=== PATIENT | female | born 2000 | race African-American/Black ===

== ENCOUNTER 2021-03-02 20:52 | Emergency (ER) | payer BC, SELFPAY ==
--- NOTE | ~2021-03-02 | XR_ITS ---
XR abdomen/kub 1V 03/02/2021 23:40 INDICATION: Abdominal pain for one year TECHNIQUE: KUB COMPARISON: None FINDINGS: Bowel gas pattern is normal. There is no evidence of free air, mass, organomegaly, ascites or obstruction. No abnormal calculi are seen. The bones appear intact. IMPRESSION: 1: No acute abdominal abnormality identified. Reviewed, dictated and finalized at location A.
[2021-03-02 21:07] VITALS: BP 139/97; PULSE 86; RESP 16; TEMP 36.7; O2SAT 100
[2021-03-02 23:02] VITALS: BP 142/91; PULSE 71; RESP 18; O2SAT 99
[2021-03-02 23:38] LABS: Basophils Absolute Auto 0.1 K/mm3 (0.0-0.1); Eosinophils Absolute Auto 0.3 K/mm3 (0-0.3); Hematocrit 39.3 % (37.0-47.0); Hemoglobin 13.3 g/dL (12.0-15.0); Immature Granulocyte Absolute 0.01 K/mm3 (0.00-0.031); Immature Granulocyte Percent A 0.2 % (0-0.5); Lymphocytes Absolute Auto 3.07 K/mm3 (0.9-3.2); Lymphocytes Percent Auto 49.1 % (18.3-44.2); Mean Corpuscular HGB Conc 33.8 g/dl (32-36); Mean Corpuscular Hemoglobin 29.8 pg (26-34); Mean Corpuscular Volume 87.9 fl (80-100); Mean Platelet Volume 9.5 fl (7.4-10.4); Monocytes Absolute Auto 0.4 K/mm3 (0.1-0.6); Monocytes Percent Auto 6.4 % (2.6-8.5); Neutrophils Absolute Auto 2.4 K/mm3 (1.3-6.7); Neutrophils Percent Auto 38.3 % (45.5-73.1); Platelet Count Result 306 k/mm3 (150-375); Red Blood Count 4.47 M/mm3 (4.2-5.4); White Blood Count 6.3 K/mm3 (4.5-10.0)
[2021-03-02 23:43] LABS: Add Urine Microscopic? YES; Appearance Urine Cloudy (Clear); Bacteria Urine Trace /hpf; Bilirubin Urine Negative (Negative); Blood Urine Negative (Negative); Color Urine Yellow (Yellow); Glucose Urine UA Negative (Negative); Ketones Urine Negative (Negative); Leukocyte Esterase Ur Negative LEU/UL (Negative); Mucus Urine Moderate /lpf; Nitrate Urine Negative (Negative); Protein Urine 1+ mg/dL (Negative); Specific Grav Ur 1.021 (1.001-1.035); Squamous Epithelial Cell Urine Many /hpf (Few); Urobilinogen Urine Negative mg/dL (<2.0); WBC Urine 0-3 /hpf
[2021-03-02 23:47] LABS: Alanine Aminotransferase 15 U/L (4-35); Albumin Level 4.9 g/dL (3.7-5.6); Alkaline Phosphatase 97 U/L (45-116); Anion Gap 8 mmol/L (8-16); Aspartate Amino Transferase 36 U/L (14-36); Bilirubin,Total 0.3 mg/dL (0.2-1.3); Blood Urea Nitrogen 6 mg/dL (8-21); Calcium 9.5 mg/dL (8.9-10.7); Carbon Dioxide 26 mmol/L (22-30); Chloride 104 mmol/L (98-107); Estimated CRCL calculation 111 ml/min; Estimated Glomerular Filt Rate > 60; Glucose 89 mg/dL (65-105); Lipase 68 U/L (23-300); Potassium 3.8 mmol/L (3.4-5.0); Sodium 138 mmol/L (134-143)
--- NOTE | 2021-03-03 00:24 | ED.ABDPAIN ---
HPI - Abdominal Pain General Chief Complaint: Abdominal Pain <Jose R Munoz PA-C - Last Filed: 03/03/21 00:28> Stated Complaint: abdominal pains <Jose R Munoz PA-C - Last Filed: 03/03/21 00:28> Time Seen by Provider: 03/02/21 23:07 <Jose R Munoz PA-C - Last Filed: 03/03/21 00:28> Source: patient <BONI Mar Last Filed: 03/03/21 00:28> Mode of arrival: ambulatory <BONI Mar Last Filed: 03/03/21 00:28> Limitations: no limitations <Jose R Munoz PA-C - Last Filed: 03/03/21 00:28> History of Present Illness HPI narrative: Patient is a 20-year-old female who presents with periumbilical abdominal pain that has been present for a year off and on had seen specialist in the past but does not recall any of the diagnoses she was given patient notes she gets intermittent belly pain in the periumbilical region patient denies any fever chills nausea vomiting patient on arrival to emergency department is in the room in no distress patient has not taken anything for her symptoms <Jose R Munoz PA-C - Last Filed: 03/03/21 00:28> Review of Systems Review of Systems: All systems reviewed & are unremarkable except as noted in HPI and below <Jose R Munoz PA-C - Last Filed: 03/03/21 00:28> PMFSH Social History Social History: Social History (Updated 03/03/21 @ 00:25 by Jose R Munoz PA-C) Smoking status: Never smoker <Jose R Munoz PA-C - Last Filed: 03/03/21 00:28> Exam Narrative: Exam Narrative: GENERAL: Well-appearing, well-nourished, and in no acute distress. HEAD: Normocephalic, atraumatic. EYES: PERRLA and EOMI. ENT: Nares clear, no rhinorrhea or epistaxis. Mucous membranes moist. CHEST: Clear to auscultation. No respiratory distress. No wheezes rales or rhonchi HEART: Regular rate and rhythm. No murmur heard. Normal peripheral pulses. ABDOMEN: Soft, nontender, nondistended EXTREMITIES: Normal range of motion. No edema. SKIN: Warm, dry, no rash. NEURO: No focal deficits. Alert and oriented x3. PSYCH: Normal mood and affect. <Jose R Munoz PA-C - Last Filed: 03/03/21 00:28> Course Course Emergency Course: Patient in the room no distress aware of case findings treatment plan and diagnosis agreeing to follow-up as instructed or to return if symptoms worsen or concerns <Jose R Munoz PA-C - Last Filed: 03/03/21 00:28> Vital Signs Vital signs: Vital Signs Temperature 98.1 F 03/02/21 21:07 Pulse Rate 86 03/02/21 21:07 Respiratory Rate 16 03/02/21 21:07 Blood Pressure 139/97 H 03/02/21 21:07 Pulse Oximetry 100 03/02/21 21:07 Temperature 98.1 F 03/02/21 21:07 Pulse Rate 71 03/02/21 23:02 Respiratory Rate 20 03/03/21 00:40 Blood Pressure 133/85 03/03/21 00:40 Pulse Oximetry 99 03/03/21 00:40 <Jose R Munoz PA-C - Last Filed: 03/03/21 00:28> Vital Signs Temperature 98.1 F 03/02/21 21:07 Pulse Rate 86 03/02/21 21:07 Respiratory Rate 16 03/02/21 21:07 Blood Pressure 139/97 H 03/02/21 21:07 Pulse Oximetry 100 03/02/21 21:07 Temperature 98.1 F 03/02/21 21:07 Pulse Rate 71 03/02/21 23:02 Respiratory Rate 20 03/03/21 00:40 Blood Pressure 133/85 03/03/21 00:40 Pulse Oximetry 99 03/03/21 00:40 <Dona Mejia MD - Last Filed: 03/03/21 02:39> MDM - Abdominal Pain MDM Narrative Medical decision making narrative: Patient will be referred to GI for further evaluation of her chronic abdominal pain provided with reasons to return medicated in the emergency department afebrile nontoxic-appearing nontender abdominal exam felt appropriate for outpatient reevaluation <BONI Mar Last Filed: 03/03/21 00:28> Lab Data Result diagrams: : 03/02/21 23:31 03/02/21 23:31 <Jose R Munoz PA-C - Last Filed: 03/03/21 00:28> Labs: Lab Results 03/02/21 03/02/2103/02
[2021-03-03 00:40] VITALS: BP 133/85; RESP 20; O2SAT 99
== END 2021-03-03 00:41 | disposition home or self-care (01) ==
PROVIDERS: Emergency Medicine Emergency Medical Services; Emergency Provider General Practice
DX: R10.33 Periumbilical pain (principal)
CPT/HCPCS: 36415; 74018; 80053; 81001; 81025; 83690; 85025; 99283

== ENCOUNTER 2023-10-11 22:40 | Emergency (ER) | payer BC, SELFPAY ==
[2023-10-11 22:41] VITALS: BP 157/114; PULSE 88; RESP 16; TEMP 36.7; O2SAT 100
--- NOTE | 2023-10-11 23:06 | ED.DENTAL ---
HPI - Dental/Oral General Chief complaint: Dental/Oral Stated complaint: dental pain Time Seen by Provider: 10/11/23 22:57 History of Present Illness HPI Narrative: 22-year-old female reports for evaluation for left upper and lower jaw pain for the past 2 days. Patient states she went to [facility] earlier today and was told she needed a root canal but they did not have REM to fit her in her their schedule. She contacted her dentist at home in [place] he said that they can schedule her on November 07. She reported to the ED today due to worsening swelling since she was at the dentist today. She reports taking Tylenol, ibuprofen and naproxen without relief. She denies difficulty tolerating her secretions or airway compromise. No fever, nausea or vomiting. She denies prior history of dental issues. denies ear pain, sore throat. She does report some sinus congestion especially on the left side. She is currently on her period and denies concern for . Review of Systems Review of Systems: CONSTITUTIONAL: Denies fever, chills, or sweats. EYES: Denies visual changes, redness, or discharge. ENT: See HPI CARDIOVASCULAR: Denies chest pain, palpitations, or edema. RESPIRATORY: Denies cough or dyspnea. GASTROINTESTINAL: Denies abdominal pain, nausea, vomiting, or diarrhea. GENITOURINARY: Denies dysuria or hematuria. SKIN: Denies rash or itching. MUSCULOSKELETAL: Denies back pain, joint pain, or myalgia. NEUROLOGIC: Denies headache, numbness, or weakness. PSYCHIATRIC: Denies anxiety or depression. [facility] Social History Social History Smoking status: Never smoker Exam Narrative: GENERAL: Well-appearing, well-nourished, and in no acute distress. Patient resting comfortably in exam bed. She is pleasant and conversational. HEAD: Normocephalic, atraumatic. EYES: PERRLA and EOMI. ENT: Nares clear, no rhinorrhea or epistaxis. Mucous membranes moist. Bilateral TMs are soto nonbulging. Normal canals. Tenderness to the left upper and lower molars. No severe caries or periapical abscesses. Tenderness to the gingiva. mild amount of edema overlying the mandible. No submandibular swelling or airway compromise. No trismus. Patient is tolerating her secretions. Posterior pharynx without erythema or edema. No tonsillar hypertrophy or uvular deviation. Floor of mouth is soft without crepitus. NECK: Supple. CHEST: Clear to auscultation. No respiratory distress. HEART: Regular rate and rhythm. No murmur heard. Normal peripheral pulses. EXTREMITIES: Normal range of motion. No edema. SKIN: Warm, dry, no rash. NEURO: No focal deficits. Alert and oriented x3 Course Vital Signs Vital signs: Vital Signs Temperature 98.1 F 10/11/23 22:41 Pulse Rate 88 10/11/23 22:41 Respiratory Rate 16 10/11/23 22:41 Blood Pressure 157/114 H 10/11/23 22:41 Pulse Oximetry 100 10/11/23 22:41 Oxygen Delivery Room Air 10/11/23 22:41 Temperature 98.1 F 10/11/23 22:41 Pulse Rate 78 10/11/23 23:22 Respiratory Rate 16 10/11/23 23:22 Blood Pressure 158/98 H 10/11/23 23:22 Pulse Oximetry 100 10/11/23 23:22 Oxygen Delivery Room Air 10/11/23 22:41 MDM - Dental/Oral MDM Narrative Medical decision making narrative: 22-year-old female reports for evaluation for left upper and lower toothache for the past 2 days. she saw a local dentist earlier today who advised that she needs a root canal. She is scheduled for her dentist in [place] on November 07. Vital significant for elevated blood pressure, otherwise unremarkable. She is afebrile. Exam significant for the above. No evidence of deep space infection. Plan to start her on Augmentin to cover potential dental infection. encouraged her to follow-up with dentistry. I advised her to take Tylenol ibuprofen as needed for pain. Ibuprofen sent to pharmacy. Strict ED return precautions discussed.
[2023-10-11] MEDS: AMOXICILLIN/CLAVULANATE K 875-125 MG TAB 1 TABLET PO (23:21)
[2023-10-11] MEDS: IBUPROFEN 400 MG TABLET 800 MG PO (23:21)
[2023-10-11 23:22] VITALS: BP 158/98; PULSE 78; RESP 16; O2SAT 100
[2023-10-11] MEDS: HYDROcodone/acetaminophen (*CRX) 5-325 MG TABLET 1 TAB PO (23:52)
== END 2023-10-11 23:54 | disposition home or self-care (01) ==
PROVIDERS: Emergency Provider Physician Assistant
DX: K08.89 Other specified disorders of teeth and supporting structures (principal)
CPT/HCPCS: 99283; A9270

== ENCOUNTER 2024-07-29 15:04 | Emergency (ER) | payer BC, SELFPAY ==
[2024-07-29 15:06] VITALS: BP 165/99; PULSE 93; RESP 16; TEMP 36.9; O2SAT 100
== END 2024-07-29 15:06 | disposition left against medical advice (07) ==
DX: R10.9 Unspecified abdominal pain (principal)
CPT/HCPCS: 99199

== ENCOUNTER 2024-07-29 18:14 | Emergency (ER) | payer BC, SELFPAY ==
--- NOTE | ~2024-07-29 | US_ITS ---
US pelvic complete Ordering provider: Mango Berrios MD History: . Ovarian cyst evaluate for torsion . Comparison: None. Technique: Transabdominal and endovaginal ultrasound of the pelvis (Doppler ultrasound interrogation techniques used as needed for this exam.) FINDINGS: CERVIX: Normal. UTERUS: Measures 8.5x 4.5 cm in length which is within normal limits and is anteverted. No myometria l masses. ENDOMETRIUM: Normal in thickness measuring 10.6 mm. (Note: the premenopausal endometrium may measure up to 16 mm when in the secretory phase.) No endometrial masses, cysts or fluid. CUL DE SAC: No free fluid. RIGHT OVARY: Normal in size measuring 2.9x 2.1x 2.5 cm Normal echotexture. Doppler vascular flow pres ent. LEFT OVARY: Normal in size measuring 4.1x 3.6x 4.6 Normal echotexture. Doppler vascular flow present. Cyst is seen in the right adnexa measuring 4.3 x 3.8 x 3.7 cm. ADNEXA: Normal. No mass. IMPRESSION: Right ovarian cyst. Otherwise, normal pelvic ultrasound. Reviewed, dictated and finalized at location A.
--- NOTE | ~2024-07-29 | CT_ITS ---
CT of the Abdomen and Pelvis: Indication: Abdominal pain Technique: 2.5 mm axial scans were obtained through the abdomen and pelvis following intravenous adm inistration of 100 cc of Omnipaque 350. Dose reduction technique was used on this scan by utilizing a utomated exposure control and iterative reconstruction technique. The dose-length product (DLP) was 3 15.37 mGy-cm. Findings: Scans through the lung bases are unremarkable. The liver, spleen, pancreas, gallbladder, adrenals and kidneys are within normal limits. No evidence of aortic aneurysm. No lymphadenopathy. No bowel obstruction or bowel wall thickening. There is no evidence to suggest acute appendicitis. Images through the pelvis were performed. Urinary bladder unremarkable. 4.5 cm left ovarian cyst pres ent. Trace ascites present. Impression: 4.5 cm left ovarian cyst. Consider pelvic ultrasound if there is concern for torsion. Reviewed, dictated and finalized at [facility]. Impression: 4.5 cm left ovarian cyst. Consider pelvic ultrasound if there is concern for to rsion.
[2024-07-29 18:31] VITALS: BP 141/88; PULSE 87; RESP 16; TEMP 36.7; O2SAT 100
[2024-07-29 23:05] VITALS: BP 186/99; PULSE 70; RESP 18; O2SAT 96
[2024-07-30 01:25] LABS: Basophils Absolute Auto 0.1 K/mm3 (0.0-0.1); Basophils Percent Auto 0.7 % (0.2-1.2); Eosinophils Absolute Auto 0.3 K/mm3 (0-0.3); Eosinophils Percent Auto 4.2 % (0-4.4); Hemoglobin 10.9 g/dL (12.0-15.0); Immature Granulocyte Absolute 0.01 K/mm3 (0.00-0.031); Immature Granulocyte Percent A 0.1 % (0-0.5); Lymphocytes Absolute Auto 1.39 K/mm3 (0.9-3.2); Lymphocytes Percent Auto 20.7 % (18.3-44.2); Mean Corpuscular HGB Conc 32.1 g/dl (32-36); Mean Corpuscular Hemoglobin 26.8 pg (26-34); Mean Corpuscular Volume 83.5 fl (80-100); Mean Platelet Volume 8.9 fl (7.4-10.4); Monocytes Absolute Auto 0.4 K/mm3 (0.1-0.6); Monocytes Percent Auto 5.9 % (2.6-8.5); Neutrophils Absolute Auto 4.6 K/mm3 (1.3-6.7); Neutrophils Percent Auto 68.4 % (45.5-73.1); Platelet Count Result 305 k/mm3 (150-375); Red Blood Count 4.07 M/mm3 (4.2-5.4); Red Cell Distribution Width 14.6 % (11.5-14.5); White Blood Count 6.7 K/mm3 (4.5-10.0)
--- NOTE | 2024-07-30 01:28 | ECG_ITS ---
Test Date: 2024-07-30 01:45:57 Measurements Intervals [place] Rate: 76 P: 60 DE: 169 QRS: 40 QRSD: 79 T: 22 QT: 400 QTc: 451 Interpretive Statements SINUS RHYTHM WITH SINUS ARRHYTHMIA POSSIBLE LEFT ATRIAL ENLARGEMENT CANNOT R/O SEPTAL INFARCT, AGE INDETERMINATE BORDERLINE ST-T WAVE ABNORMALITY- ANT/INF LEADS ABNORMAL ECG No previous ECG available for comparison Electronically Signed On 07-30-2024 05:52:16 CDT by Jonathan Emery D.O.
--- NOTE | 2024-07-30 01:28 | ED.ABDPAIN ---
HPI - Abdominal Pain General Chief Complaint: Abdominal Pain <Tory Lizama PA-C - Last Filed: 07/30/24 17:31> Stated Complaint: abd pain <Tory Lizama PA-C - Last Filed: 07/30/24 17:31> Time Seen by Provider: 07/30/24 00:55 <Tory Lizama PA-C - Last Filed: 07/30/24 17:31> Source: patient <Tory Lizama PA-C - Last Filed: 07/30/24 17:31> Mode of arrival: ambulatory <Tory Lizama PA-C - Last Filed: 07/30/24 17:31> Limitations: no limitations <Tory Lizama PA-C - Last Filed: 07/30/24 17:31> History of Present Illness HPI narrative: This is a 23 year old female that presents to the emergency department for epigastric abdominal pain. Ongoing over the last week. Reports the pain is burning in nature and sharp. Radiates into her chest. She has tried taking some ahpo-brh-tkazctn medications with little relief. Pain is worse with eating. Reports some associated nausea and vomiting. Denies fevers. <Tory Lizama PA-C - Last Filed: 07/30/24 17:31> Related Data Allergies/Adverse Reactions: Allergies Allergy/AdvReac Type Severity Reaction Status Date / Time No Known Allergies Allergy Verified 07/29/24 18:14 <Tory Lizama PA-C - Last Filed: 07/30/24 17:31> Review of Systems Review of Systems: CONSTITUTIONAL: Denies fever GASTROINTESTINAL: Reports abdominal pain, nausea, vomiting. Denies diarrhea. GENITOURINARY: Denies dysuria <Tory Lizama PA-C - Last Filed: 07/30/24 17:31> All systems reviewed & are unremarkable except as noted in HPI and below <Tory Lizama PA-C - Last Filed: 07/30/24 17:31> [facility] Past Medical History Medical History: Medical History (Updated 07/30/24 @ 04:40 by Tory Lizama PA-C) No active medical problems <Tory Lizama PA-C - Last Filed: 07/30/24 17:31> Social History Social History: Social History Smoking status: Never smoker <Tory Lizama PA-C - Last Filed: 07/30/24 17:31> Exam Narrative: GENERAL: Well-appearing, well-nourished, and in no acute distress. HEAD: Normocephalic, atraumatic. EYES: EOMI. CHEST: Clear to auscultation. No respiratory distress. No wheezes rales or rhonchi HEART: Regular rate and rhythm. No murmur heard. Normal peripheral pulses. ABDOMEN: Soft, nontender, nondistended, normal active bowel sounds. EXTREMITIES: Normal range of motion. No edema. SKIN: Warm, dry, no rash. NEURO: No focal deficits. Alert and oriented x3. PSYCH: Normal mood and affect <Tory Lizama PA-C - Last Filed: 07/30/24 17:31> Course Course Emergency Course: Updated on her workup thus far. Endorsing continued pain. Will obtain imaging for further evaluation. Care taken over by Dr. Berrios at shift change <Tory Lizama PA-C - Last Filed: 07/30/24 17:31> Reevaluation(s) Reevaluation #1: 23-year-old female was signed out to me by the overnight physician with ultrasound pending. Ultrasound was ordered to rule out ovarian torsion. Ultrasound showed a right ovarian cyst but no evidence of torsion. Patient was up to the results of workup patient was comfortable the plan for discharge and close follow-up. <Neel Fall MD - Last Filed: 07/30/24 10:27> Vital Signs Vital signs: Vital Signs Temperature 98.1 F 07/29/24 18:31 Pulse Rate 87 07/29/24 18:31 Respiratory Rate 16 07/29/24 18:31 Blood Pressure 141/88 H 07/29/24 18:31 Pulse Oximetry 100 07/29/24 18:31 Temperature 97.9 F 07/30/24 09:33 Pulse Rate 82 07/30/24 09:33 Respiratory Rate 14 07/30/24 09:33 Blood Pressure 141/90 H 07/30/24 09:33 Pulse Oximetry 100 09/17/24 09:33 <Tory Lizama PA-C - Last Filed: 07/30/24 17:31> Vital Signs Temperature 98.1 F 07/29/24 18:31 Pulse Rate 87 07/29/24 18:31 Respiratory Rate 16 07/29/24 18:31 Blood Pressure 141/88 H 07/29/24 18:31 Pulse
[2024-07-30] MEDS: ONDANSETRON INJ 4 MG/2 ML VIAL IV PUSH (01:34)
[2024-07-30] MEDS: PANTOPRAZOLE SODIUM IV 40 MG VIAL IV PUSH (01:34)
[2024-07-30] MEDS: SODIUM CHLORIDE 0.9% IV 1,000 ML 999 ML IV CONT ×2 (01:34→04:10)
[2024-07-30 01:38] LABS: Alanine Aminotransferase 12 U/L (6-35); Albumin Level 4.5 g/dL (3.5-5.1); Alkaline Phosphatase 91 U/L (38-126); Anion Gap 15 mmol/L (4-12); Aspartate Amino Transferase 29 U/L (14-36); Bilirubin,Total 0.8 mg/dL (0.2-1.3); Blood Urea Nitrogen 7 mg/dL (7-17); Calcium 9.2 mg/dL (8.4-10.2); Carbon Dioxide 20 mmol/L (22-30); Chloride 102 mmol/L (98-107); Glucose 79 mg/dL (65-110); Lipase 47 U/L (23-300); Potassium 3.9 mmol/L (3.4-5.0); Sodium 137 mmol/L (137-145)
[2024-07-30 02:12] LABS: Troponin I < 0.012 ng/mL (0.000-0.034)
[2024-07-30 03:11] LABS: BEDSIDEPREGUCG Negative (Negative)
[2024-07-30 03:26] VITALS: BP 154/87; PULSE 66; RESP 18; O2SAT 97
[2024-07-30 03:38] LABS: Add Urine Microscopic? YES; Appearance Urine Cloudy (Clear); Bacteria Urine 4+ /hpf; Bilirubin Urine Negative (Negative); Blood Urine 2+ (Negative); Color Urine Dark Yellow (Yellow); Glucose Urine UA Negative (Negative); Ketones Urine 4+ mg/dL (Negative); Leukocyte Esterase Ur Negative LEU/UL (Negative); Need Manual Microscopic Reviewed; Nitrate Urine Negative (Negative); Protein Urine 1+ mg/dL (Negative); Specific Grav Ur 1.033 (1.001-1.035); Squamous Epithelial Cell Urine Moderate /hpf (Few)
[2024-07-30] MEDS: FAMOTIDINE 20 MG/2 ML VIAL IV PUSH (04:10)
[2024-07-30 06:12] VITALS: BP 122/71; PULSE 67; RESP 18; O2SAT 100
[2024-07-30 08:18] VITALS: BP 141/89; PULSE 76; RESP 16; O2SAT 100
[2024-07-30 09:33] VITALS: BP 141/90; PULSE 82; RESP 14; TEMP 36.6; O2SAT 100
== END 2024-07-30 09:35 | disposition home or self-care (01) ==
PROVIDERS: Emergency Provider Physician Assistant
DX: R10.13 Epigastric pain (principal); D64.9 Anemia, unspecified; N83.201 Unspecified ovarian cyst, right side; R94.31 Abnormal electrocardiogram [ECG] [EKG]
CPT/HCPCS: 36415; 74177; 76856; 80053; 81001; 81025; 83690; 84484; 85025; 87077; 87086; 87088; 93005; 96361; 96374; 96375; 99284; J2405; J2470; J7030; Q9967

== ENCOUNTER 2024-08-24 19:48 | Emergency (ER) | payer BC, SELFPAY ==
--- NOTE | ~2024-08-24 | XR_ITS ---
EXAMINATION: XR chest 2V Exam Date/Time: 08/24/2024 21:54 CDT HISTORY: cp Comparison: None. RESULT: Lines, tubes, and devices: None. Lungs and pleura: Clear. Cardiomediastinal silhouette: Normal. Other: No acute osseous or upper abdominal finding. IMPRESSION: No acute cardiopulmonary process. Reviewed, dictated and finalized at location K.
--- NOTE | ~2024-08-24 | CT_ITS ---
EXAMINATION: CT abdomen pelvis w con DATE: 08/24/2024 21:56 INDICATION: abd pain, constipation, N/V TECHNIQUE: Computed tomography (CT) of the abdomen and pelvis was performed with 100 mL Omnipaque-350 intravenous contrast. Automated exposure control and iterative reconstruction technique were employe d. The dose-length product was 266.00 mGy-cm. COMPARISON: 07/30/2024. FINDINGS: Lower thorax: Unremarkable Liver: Normal. Biliary/Gallbladder: Gallbladder is normal. No bile duct dilation. Pancreas: No mass or duct dilation. Spleen: Normal. Adrenals:No mass. Kidneys: No suspicious mass, obstructing stone, or hydronephrosis. GI tract: Moderate distal esophageal and gastric wall edema. No small or large bowel dilation. The ap pendix is mildly dilated to 7 mm, which was also the case in the prior study. No significant surround ing inflammatory change. Mesentery/Peritoneum: No ascites, mass, or free air. Retroperitoneum: No mass. Pelvis: Pelvic organs are within normal limits. Soft Tissues: Soft tissues and body wall unremarkable. Bones: No acute osseous finding. IMPRESSION: Moderate esophagitis/gastritis. Otherwise, no acute abdominopelvic process detected. Reviewed, dictated and finalized at location K.
[2024-08-24 19:59] VITALS: BP 150/98; PULSE 110; RESP 20; TEMP 36.7; O2SAT 100
--- NOTE | 2024-08-24 20:06 | ECG_ITS ---
Test Date: 2024-08-24 20:35:25 Measurements Intervals [place] Rate: 99 P: 71 ME: 150 QRS: 68 QRSD: 76 T: -56 QT: 317 QTc: 407 Interpretive Statements SINUS RHYTHM SEPTAL MYOCARDIAL INFARCTION , OF INDETERMINATE AGE [40+ ms Q WAVE IN V1/V2] MODERATE T-WAVE ABNORMALITY, CONSIDER LATERAL ISCHEMIA [-0.1+ mV T-WAVE IN I/aVL/V5/V6] MODERATE T-WAVE ABNORMALITY, CONSIDER INFERIOR ISCHEMIA [-0.1+ mV T-WAVE IN II/aVF] Compared to ECG 07/30/2024 01:45:57 T-wave abnormality now present Possible ischemia now present Sinus arrhythmia no longer present Myocardial infarct finding still present Electronically Signed On 08-24-2024 22:06:51 CDT by Ginger Norton M.D.
--- NOTE | 2024-08-24 20:18 | ED.ABDPAIN ---
HPI - Abdominal Pain General Chief Complaint: Abdominal Pain Stated Complaint: abd/epigastric pain Time Seen by Provider: 08/24/24 20:05 Source: patient Mode of arrival: ambulatory Limitations: no limitations History of Present Illness HPI narrative: Patient is a 23-year-old female who presents the ED with report of abdominal and chest pain. Patient reports having pain diffusely throughout her abdomen. She states pain has been going on for the last month or so, but has been worse since Monday. She states the pain radiates up into her lower midsternal chest. She has had intermittent episodes of abdominal pain like this before, but denies ever radiating into her chest. She reports nausea and vomiting, states she has been unable to keep down any food or medications since Monday. Also reports constipation, states last bowel movement was 1 week ago. Denies fevers. Related Data Allergies Allergy/AdvReac Type Severity Reaction Status Date / Time No Known Allergies Allergy Verified 08/24/24 20:02 Review of Systems Review of Systems: All systems reviewed & are unremarkable except as noted in HPI. All systems reviewed & are unremarkable except as noted in HPI and below PMFSH Past Medical History Medical History No active medical problems Social History Social History Smoking status: Never smoker Exam Narrative: GENERAL: Mildly uncomfortable appearing, well-nourished, non-toxic, in no acute distress. HEAD: Normocephalic, atraumatic. RESPIRATORY: Airway patent, respirations nonlabored. Clear to auscultation bilaterally, no rales, rhonchi, wheezing. CARDIOVASCULAR: Regular rate and rhythm without murmurs, rubs, or gallops. ABDOMINAL: Soft, diffuse nonfocal tenderness, nondistended. Normoactive BS. MUSCULOSKELETAL: Moves all extremities. No gross deformities. SKIN: Warm, dry, normal color. NEURO: A&O X3. Speech clear. PSYCHIATRIC: Tearful. Normal interaction. Course Vital Signs Vital signs: Vital Signs Temperature 98.1 F 08/24/24 19:59 Pulse Rate 110 H 08/24/24 19:59 Respiratory Rate 20 08/24/24 19:59 Blood Pressure 150/98 H 08/24/24 19:59 Pulse Oximetry 100 08/24/24 19:59 Oxygen Delivery Room Air 08/24/24 19:59 Temperature 98.7 F 08/25/24 00:32 Pulse Rate 78 08/25/24 00:32 Respiratory Rate 18 08/25/24 00:32 Blood Pressure 138/72 08/25/24 00:32 Pulse Oximetry 98 08/25/24 00:32 Oxygen Delivery Room Air 08/24/24 19:59 MDM - Abdominal Pain MDM Narrative Medical decision making narrative: Patient presented to ED with abdominal and chest pain. Ongoing for past 1 month, worsening over the last several days. Patient borderline tachycardic upon arrival. Mildly anxious appearing, tearful on my evaluation. Afebrile here. Fluids initiated. CBC w/o leukocytosis/anemia. CMP with bicarb of 17, anion gap of 19. Fluids ongoing. Stable kidney function. Otherwise stable electrolytes. Normal LFTs and lipase. UA with dehydration, possible UTI. Did show large amount of RBC, patient is currently on her menstrual cycle. Urine preg negative. UDS negative (patient given morphine here, negative for marijuana). CT of abdomen/pelvis obtained and showing gastritis/esophagitis, no other significant findings. Patient given Pepcid in the ED. Will discharge on this. CXR is clear. EKG with nonspecific ST changes. No acute ST elevation or depression. Troponin is undetectable. Patient reports chest discomfort has been ongoing for several days. Low suspicion for ACS at this time. Suspicious for gastritis/indigestion picture causing chest pain. Discussed lab and imaging findings with patient/family members at bedside/mother via phone, overall reassuring workup. Patient reports abdominal pain is starting to resume. Will attempt Bentyl, give Toradol, and attempt p.o. chall
[2024-08-24] MEDS: FAMOTIDINE 20 MG/2 ML VIAL IV PUSH (20:44)
[2024-08-24] MEDS: MORPHINE SULFATE (*CRX) 2 MG/ML INJ IV PUSH (20:44)
[2024-08-24] MEDS: ONDANSETRON INJ 4 MG/2 ML VIAL IV PUSH (20:44)
[2024-08-24] MEDS: SODIUM CHLORIDE 0.9% IV 1,000 ML 999 ML IV CONT ×2 (20:44→22:16)
[2024-08-24 20:50] VITALS: BP 165/105; PULSE 96; RESP 18; TEMP 37.2; O2SAT 99
[2024-08-24 20:56] LABS: Basophils Absolute Auto 0.1 K/mm3 (0.0-0.1); Eosinophils Absolute Auto 0.2 K/mm3 (0-0.3); Eosinophils Percent Auto 2.8 % (0-4.4); Hematocrit 39.3 % (37.0-47.0); Hemoglobin 12.8 g/dL (12.0-15.0); Immature Granulocyte Absolute 0.02 K/mm3 (0.00-0.031); Immature Granulocyte Percent A 0.3 % (0-0.5); Lymphocytes Absolute Auto 1.03 K/mm3 (0.9-3.2); Lymphocytes Percent Auto 17.1 % (18.3-44.2); Mean Corpuscular HGB Conc 32.6 g/dl (32-36); Mean Corpuscular Hemoglobin 26.6 pg (26-34); Mean Corpuscular Volume 81.7 fl (80-100); Mean Platelet Volume 9.3 fl (7.4-10.4); Monocytes Absolute Auto 0.6 K/mm3 (0.1-0.6); Monocytes Percent Auto 10.6 % (2.6-8.5); Neutrophils Absolute Auto 4.1 K/mm3 (1.3-6.7); Neutrophils Percent Auto 68.2 % (45.5-73.1); Platelet Count Result 361 k/mm3 (150-375); Red Blood Count 4.81 M/mm3 (4.2-5.4); Red Cell Distribution Width 14.5 % (11.5-14.5)
[2024-08-24 21:00] VITALS: BP 109/81; PULSE 103; RESP 16; O2SAT 99
[2024-08-24 21:07] LABS: Alanine Aminotransferase 11 U/L (6-35); Albumin Level 5.2 g/dL (3.5-5.1); Alkaline Phosphatase 95 U/L (38-126); Anion Gap 19 mmol/L (4-12); Aspartate Amino Transferase 31 U/L (14-36); Bilirubin,Total 0.9 mg/dL (0.2-1.3); Blood Urea Nitrogen 7 mg/dL (7-17); Calcium 9.6 mg/dL (8.4-10.2); Carbon Dioxide 17 mmol/L (22-30); Chloride 101 mmol/L (98-107); Estimated CRCL calculation 94 ml/min; Estimated Glomerular Filt Rate > 60; Glucose 82 mg/dL (65-110); Lipase 62 U/L (23-300); Magnesium 1.8 mg/dL (1.6-2.3); Potassium 3.6 mmol/L (3.4-5.0); Sodium 137 mmol/L (137-145)
[2024-08-24 21:18] LABS: Troponin I < 0.012 ng/mL (0.000-0.034)
[2024-08-24 22:25] LABS: BEDSIDEPREGUCG Negative (Negative)
[2024-08-24 22:54] LABS: Amphetamine Screen Urine Negative (Negative); Barbiturate Screen Urine Negative (Negative); Benzodiazepines Screen Urine Negative (Negative); Cannabinoid Screen Urine Negative (Negative); Cocaine Screen Urine Negative (Negative); Methadone Screen Urine Negative (Negative); Opiate Screen Urine Positive (Negative); Phencyclidine Screen Urine Negative (Negative)
[2024-08-24 22:58] LABS: Add Urine Microscopic? YES; Appearance Urine Cloudy (Clear); Bacteria Urine 1+ /hpf; Bilirubin Urine Negative (Negative); Blood Urine 3+ (Negative); Color Urine Orange (Yellow); Glucose Urine UA Negative (Negative); Ketones Urine 4+ mg/dL (Negative); Leukocyte Esterase Ur Trace LEU/UL (Negative); Need Manual Microscopic Reviewed; Nitrate Urine Negative (Negative); Non Pathogenic Casts 0-2; Protein Urine 2+ mg/dL (Negative); RBC Urine >100 /hpf (0-2); Specific Grav Ur > 1.045 (1.001-1.035); Squamous Epithelial Cell Urine None Seen /hpf (Few); WBC Urine 21-50 /hpf (0-3)
[2024-08-24] MEDS: DICYCLOMINE HCL 10 MG CAPSULE 20 MG PO (23:05)
[2024-08-24] MEDS: KETOROLAC 30 MG/ML VIAL (*BKC) IV PUSH (23:12)
[2024-08-24] MEDS: CEPHALEXIN 500 MG CAPSULE PO (23:17)
[2024-08-25 00:32] VITALS: BP 138/72; PULSE 78; RESP 18; TEMP 37.1; O2SAT 98
== END 2024-08-25 00:34 | disposition home or self-care (01) ==
PROVIDERS: Emergency Provider Physician Assistant
DX: K29.70 Gastritis, unspecified, without bleeding (principal); E86.0 Dehydration; R82.998 Other abnormal findings in urine; R94.31 Abnormal electrocardiogram [ECG] [EKG]
CPT/HCPCS: 36415; 71046; 74177; 80053; 80307; 81001; 81025; 83690; 83735; 84484; 85025; 87086; 93005; 96361; 96374; 96375; 99284; A9270; J1885; J2270; J2405; J7030; Q9967